=== PATIENT | female | born 1950 | race Caucasian/White ===

== ENCOUNTER → 2017-12-19 | Outpatient (CLI) | payer OTHER ==
[~2017-12-19] MED LIST: ACIPHEX 20 MG T20 MG PO; ADULT LOW DOSE81 MG PO; ASPIRIN325 PO; COLACE100 MG PO; LIPITOR40 MG PO; MIRALAX17 G1 PO; OXYCODONE HCL 55 MG PO; PERCOCET PO; QUINAPRIL 20 MG20 MG PO; TOPROL XL50 MG PO; VICODIN 5-5001 EACH PO; XARELTO10 MG PO; ZOLOFT 50 MG TA50 MG PO; ZORVOLEX18 MG PO
== END ==
LOC: M.RAD 15:24
DX: M85.841 Other specified disorders of bone density and structure, right hand (principal); M81.0 Age-related osteoporosis without current pathological fracture

== ENCOUNTER → 2018-01-01 | Outpatient (CLI) | payer OTHER | LOC: M.RAD 08:51 | DX: Z13.820 Encounter for screening for osteoporosis (principal); M85.89 Other specified disorders of bone density and structure, multiple sites; Z78.0 Asymptomatic menopausal state ==

== ENCOUNTER → 2019-03-20 | Outpatient (CLI) | payer OTHER | LOC: M.RAD 11:45 | DX: R10.9 Unspecified abdominal pain (principal); Z90.49 Acquired absence of other specified parts of digestive tract ==

== ENCOUNTER 2021-05-10 12:45 | Emergency (ER) | payer OTHER ==
[~2021-05-10] VITALS: Ht 157.5 cm; Wt 110.7 kg
[2021-05-10] MEDS ORDERED: ASA81BEC PO (13:01)
[2021-05-10] MEDS ORDERED: RANITIDINE (13:04)
[2021-05-10] MEDS ORDERED: AUGMENTIN 875-1 EACH PO (13:35)
[2021-05-10 14:18] VITALS: BP 185/89
== END 2021-05-10 14:19 | disposition home or self-care (01) ==
LOC: M.ERS 12:45
DX: R04.0 Epistaxis (principal); I10 Essential (primary) hypertension; E78.5 Hyperlipidemia, unspecified; F32.9 Major depressive disorder, single episode, unspecified; Z90.49 Acquired absence of other specified parts of digestive tract; Z90.711 Acquired absence of uterus with remaining cervical stump; Z79.82 Long term (current) use of aspirin; Z79.899 Other long term (current) drug therapy; Z88.3 Allergy status to other anti-infective agents